=== PATIENT | male | born 1940 | race Caucasian/White ===

== ENCOUNTER → 2016-12-22 | Outpatient (CLI) | payer OTHER ==
[~2016-12-22] MED LIST: ALBUTEROL INH; APIX5TAB PO; ATOR-2 PO; DOCU-131 PO; LACT10SO28 PO; METO25TA35 PO; MULT-516 PO; OXYB5TAB7 PO; OXYC10TA6 PO; OXYC5CAP2 PO; PHEN100T90 PO; ROPI2TAB4 PO; SENN8.6T64 PO; SILD100T PO; SUCR1TAB PO; TAMS0.4C2 PO
== END | disposition home or self-care (01) ==
LOC: ROC 11:17
PROVIDERS: ATTEND Radiology Radiation Oncology
DX: C32.9 Malignant neoplasm of larynx, unspecified (principal)
CPT/HCPCS: 99212; G0463

== ENCOUNTER → 2017-02-09 | Outpatient (CLI) | payer OTHER | END | disposition home or self-care (01) | LOC: ROC 10:43 | PROVIDERS: ATTEND Radiology Radiation Oncology | DX: C32.1 Malignant neoplasm of supraglottis (principal); F17.210 Nicotine dependence, cigarettes, uncomplicated; Z79.01 Long term (current) use of anticoagulants | CPT/HCPCS: 99212; G0463 ==